=== PATIENT | female | born 1950 | race Caucasian/White ===

== ENCOUNTER 2021-09-28 11:56 | Outpatient (CLI) | payer OTHER ==
[~2021-09-28 11:56] MED LIST: AMBIEN10 MG PO; ATIVAN1 M1 PO; GABAPENTIN400 MG PO; NORFLEX100MG PO; SULINDAC150 MG PO; TRAMADOL HCL50 MG PO
== END 2021-09-28 12:04 | disposition home or self-care (01) ==
LOC: RAD 11:56
PROVIDERS: ATTEND Orthopaedic Surgery
DX: M25.572 Pain in left ankle and joints of left foot (principal)